=== PATIENT | female | born 1965 | race Caucasian/White ===

== ENCOUNTER 2019-01-12 18:10 | Observation (INO) | payer OTHER ==
[~2019-01-12] VITALS: Ht 152.4 cm; Wt 85.1 kg
[2019-01-12 19:11] LABS: BASOPHILS % (AUTO) 2 % (0-1); EOSINOPHILS # (AUTO) 0.54 x10^3/uL (0-0.4); EOSINOPHILS % (AUTO) 4 % (1-7); LYMPHOCYTES # (AUTO) 3.11 x10^3/uL (1-3.4); LYMPHOCYTES % (AUTO) 24 % (22-44); MD NO; MEAN CORPUSCULAR HEMOGLOBIN 31.9 pg (27.0-34.8); MEAN CORPUSCULAR HGB CONC 34.9 g/dL (32.4-35.8); MEAN CORPUSCULAR VOLUME 91.4 fL (80-100); MEAN PLATELET VOLUME 7.8 fL (7.4-10.4); MONOCYTES % (AUTO) 7 % (2-9); NEUTROPHILS # (AUTO) 8.19 x10^3/uL (1.8-6.8); NEUTROPHILS % (AUTO) 63 % (42-75); PLATELET COUNT 329 x10^3/uL (130-400); RED BLOOD COUNT 4.31 x10^6/uL (3.82-5.3); RED CELL DISTRIBUTION WIDTH 12.9 % (9.6-15.2)
--- NOTE | 2019-01-12 19:11 | NUR ---
RECEIVED BS REPORT FROM NATALIE MCKEE TO ASSUME PT. CARE. PT JUST RETURNED FROM CT. ALL MONITORS IN PLACE. CALL LIGHT IN REACH. ALL SAFETY MEASURES OBSERVED. FAMILY AT BS. PT. DENIES NEEDS.
[2019-01-12 19:19] LABS: INTERNATIONAL NORMALIZED RATIO 0.98 (0.93-1.1); PROTHROMBIN TIME 10.4 Seconds (9.6-11.5)
[2019-01-12 19:57] LABS: ANION GAP 10 mmol/L (5-15); CALCIUM 8.7 mg/dL (8.5-10.1); CHLORIDE 105 mmol/L (98-107)
[2019-01-12 19:58] LABS: ALANINE AMINOTRANSFERASE 16 U/L (12-78); ALBUMIN 3.8 g/dL (3.4-5.0); ALKALINE PHOSPHATASE 84 U/L (45-117); BILIRUBIN,TOTAL 0.5 mg/dL (0.2-1.0); TOTAL PROTEIN 7.2 g/dL (6.4-8.2)
--- NOTE | 2019-01-12 20:16 | NUR ---
CHART UP FOR RECHECK BY GALA.
--- NOTE | 2019-01-12 20:53 | NUR ---
PT. AWARE OF POC. CHEST X-RAY BEING DONE NOW. FAMILY REMAINS AT BS. ALL SAFETY MEASUERS OBSERVED.
[2019-01-12 21:12] LABS: TROPONIN I < 0.015 ng/mL (0.000-0.045)
--- NOTE | 2019-01-12 21:20 | NUR ---
CHART UP FOR RECHECK BY GALA.
--- NOTE | 2019-01-12 21:22 | NUR ---
[facility] AT TO EVAL PT. FOR ADMISSION.
[2019-01-12] MEDS ORDERED: POLYETHYLENE GLYCOL 17 GM PACKET PO PRN (21:30)
[2019-01-12] MEDS ORDERED: NITROGLYCERIN 0.4 MG BOTTLE (25 TABS) SL PRN (21:30)
[2019-01-12] MEDS ORDERED: ONDANSETRON 2MG/ML, 2ML IVPush PRN (21:30)
[2019-01-12] MEDS ORDERED: hydrALAzine 20 MG/ML, 1ML IVPush PRN (21:30)
[2019-01-12] MEDS ORDERED: ACETAMINOPHEN 325 MG TABLET PO PRN (21:30)
[2019-01-12] MEDS ORDERED: BUTALB/APAP/CAFFEINE 50MG/325MG/40MG PO PRN (21:30)
--- NOTE | 2019-01-12 21:52 | NUR ---
REPORT TO NATALIE MOYER. FLOOR READY FOR PT. TRANSPORT. [facility] AT TO [facility] PT. FOR ADMISSION.
[2019-01-12] MEDS: SODIUM CHLORIDE 0.9% 1,000 ML IV SCH (22:17)
[2019-01-12 22:27] VITALS: BP 107/71
[2019-01-12 22:46] VITALS: BP 107/71
[2019-01-12 23:31] LABS: TROPONIN I < 0.015 ng/mL (0.000-0.045)
[2019-01-13 01:39] VITALS: BP 97/60
[2019-01-13 06:20] LABS: CHOLESTEROL, TOTAL 171 mg/dL (140-239)
[2019-01-13 06:24] LABS: CHOL/HDL RATIO 5.7; HDL CHOL % 18 % (28-40); HDL CHOLESTEROL (DIRECT) 30 mg/dL (40-60); LDL CHOLESTEROL,CALCULATED 105 mg/dL (54-169); LDL/HDL RATIO 3.5 (0.5-3.0); TRIGLYCERIDES 180 mg/dL (50-200); TROPONIN I < 0.015 ng/mL (0.000-0.045); VLDL CHOLESTEROL 36 mg/dL (0-25)
[2019-01-13 07:10] LABS: MICROSCOPIC NOT IND
[2019-01-13 07:19] VITALS: BP 103/65
[2019-01-13 07:20] LABS: CULTURE INDICATED? NO
[2019-01-13] MEDS ORDERED: GADOBUTROL 10 MMOL/10 ML PFS ONE (12:57)
[2019-01-13 13:30] VITALS: BP 98/60
[2019-01-13] MEDS: SODIUM CHLORIDE 0.9% 1,000 ML IV SCH (15:00)
== END 2019-01-13 19:00 | disposition home or self-care (01) ==
LOC: SUATTDRO 21:06 → ED 21:18 → UNDOADMOB 21:23 → EDIP 21:23 → INTOOBSV 21:23 → EDIP 21:30 → ED 21:36 → EDIP 22:09 → 5SO 22:09 → UNDODISOB 01-13 19:00
PROVIDERS: ADMIT Hospitalist; ATTEND Hospitalist
DX: R07.89 Other chest pain (principal); R51 Headache; E66.9 Obesity, unspecified; F02.80 Dementia in other diseases classified elsewhere, unspecified severity, without behavioral disturbance, psychotic disturbance, mood disturbance, and anxiety; F17.210 Nicotine dependence, cigarettes, uncomplicated; G30.9 Alzheimer's disease, unspecified; Z82.49 Family history of ischemic heart disease and other diseases of the circulatory system; Z68.36 Body mass index [BMI] 36.0-36.9, adult; F41.9 Anxiety disorder, unspecified
CPT/HCPCS: 36415; 70450; 70553; 71045; 78452; 80053; 80061; 80307; 81003; 84484; 85025; 85610; 85730; 93005; 93017; 97165; 99285; A9502; A9585; C9898; G0378; J7030